=== PATIENT | male | born 1955 | race Caucasian/White ===

== ENCOUNTER 2024-11-06 00:36 | Emergency (ER) | payer MEDICARE ==
[2024-11-06] MEDS: Ondansetron 4 MG/2 ML SDV IVPUSH ONE (02:03)
[2024-11-06] MEDS: Morphine 4 MG/ML Syringe IVPUSH ONE (02:03)
== END 2024-11-06 08:39 ==
LOC: JP.ED 00:36
DX: S72.331A Displaced oblique fracture of shaft of right femur, initial encounter for closed fracture (principal); M97.01XA Periprosthetic fracture around internal prosthetic right hip joint, initial encounter; Z79.899 Other long term (current) drug therapy; W10.8XXA Fall (on) (from) other stairs and steps, initial encounter; Y93.89 Activity, other specified
CPT/HCPCS: 73502; 96374; 96375; 99285; J2270; J2405